=== PATIENT | female | born 1965 | race Caucasian/White ===

== ENCOUNTER → 2016-06-16 | Outpatient (CLI) | payer MEDICAID ==
--- NOTE | 2016-06-16 15:41 | MA ---
Screening Digital Mammogram Clinical Indications: Routine screening. Mother with breast cancer at age 45. Technique: Standard cephalocaudal and mediolateral oblique projections are obtained. This examinati on was processed by the [employer] computer aided detection system. Comparison: January 2015, 2013 and 2012, December 2011 and August 2010 Breast density: C; The breast tissue is heterogeneously dense, which could obscure detection of small masses. Findings: CAD was reviewed. No suspicious findings are identified. Impression: Negative mammogram. BI-RADS 1. Recommendation: Routine screening is recommended in one year, as long as physical examination is carolina ign in this patient with moderately dense breast parenchyma. Considering the patient's moderately den se breast parenchymal pattern and family history, she might benefit from utilizing all breast screeni ng ultrasound as a complement to screening mammography. Genetic counseling might also be useful. [facility] will send a result letter to the patient. Negative mammography should not preclude additional workup of a clinically suspicious finding. The patient's information is entered into a reminder system with a target due date for her next mammo gram.
== END ==
LOC: BRMIMAGING 14:38
DX: Z12.31 Encounter for screening mammogram for malignant neoplasm of breast (principal); Z80.3 Family history of malignant neoplasm of breast
CPT/HCPCS: G0202